=== PATIENT | female | born 1960 | race Caucasian/White ===

== ENCOUNTER → 2022-04-10 | Outpatient (REF) | payer SELFPAY ==
[2022-04-10 16:54] LABS: APPEARANCE, URINE MANUAL CLEAR (CLEAR); BILIRUBIN, URINE MANUAL NEGATIVE (NEGATIVE); BLOOD URINE MANUAL NEGATIVE (NEGATIVE); COLOR, URINE MANUAL YELLOW (YELLOW); GLUCOSE, URINE (UA) MANUAL NEGATIVE (NEGATIVE); KETONE, URINE MANUAL NEGATIVE (NEGATIVE); LEUKOCYTE ESTERASE, URINE MAN POSITIVE (NEGATIVE); NITRITE, URINE MANUAL NEGATIVE (NEGATIVE); PROTEIN, URINE MANUAL NEGATIVE (NEGATIVE); SPECIFIC GRAVITY,URINE MANUAL 1.025 (1.002-1.035); UROBILINOGEN, URINE MANUAL NORMAL (NORMAL)
[2022-04-10 17:21] LABS: WBC, URINE 30-40 /hpf (0-3)
[2022-04-10 17:22] LABS: BACTERIA, URINE SMALL AMOUNT; HYALINE CAST, URINE NONE SEEN /lpf (0-1); MUCUS, URINE SMALL AMOUNT (NEGATIVE); SQUAMOUS EPITHELIAL CELL URINE SMALL AMOUNT /hpf (SMALL AMT); TRANSITIONAL EPI CELLS, URINE MOD AMOUNT /hpf
== END ==
LOC: M LAB REF 16:23
PROVIDERS: ATTEND Physician Assistant Medical
DX: N39.0 Urinary tract infection, site not specified (principal)

== ENCOUNTER → 2023-07-11 | Outpatient (REF) | payer MEDICARE, SELFPAY ==
[2023-07-11 15:44] LABS: IRON (FE) 72 UG/DL (50-170); PERCENT SATURATION 22.2 % (13.2-45.0); RHEUMATOID FACTOR QUANT < 3.5 IU/ML (<14); TOTAL IRON BINDING CAPACITY 325 UG/DL (250-425)
[2023-07-11 15:47] LABS: FERRITIN 79.5 NG/ML (7.3-270.7); VITAMIN B12 LEVEL 965 PG/ML (211-911)
[2023-07-13 21:09] LABS: ANTINUCLEAR ANTIBODIES DIRECT Negative (Negative); CYCLIC CITRULLINATED PEPTIDE 5 units (0-19)
== END ==
LOC: M LAB REF 12:37
PROVIDERS: ATTEND Internal Medicine
DX: Z98.84 Bariatric surgery status (principal); M25.551 Pain in right hip

== ENCOUNTER → 2023-07-29 | Outpatient (CLI) | payer MEDICARE | LOC: M WHC 09:39 | PROVIDERS: ATTEND Internal Medicine | DX: Z12.31 Encounter for screening mammogram for malignant neoplasm of breast (principal) ==

== ENCOUNTER 2023-11-18 06:54 | Day surgery (SDC) | payer MEDICARE ==
[~2023-11-18] VITALS: Ht 170.2 cm; Wt 100.3 kg
[~2023-11-18 06:54] MED LIST: ASCO500C3 PO; B-12100010 PO; FERR324T21 PO; MULT-90 PO; PARO40TA2 PO; SIMETHICONE 40MG/0.6ML DROPS 30ML As Ordered ONE; VITA100093 PO
[2023-11-18] MEDS: NS 1,000 ML IV ONE (07:15)
[2023-11-18] MEDS ORDERED: propofoL 500 MG/50 ML VIAL As Ordered ONE (07:32)
[2023-11-18 08:15] VITALS: BP 138/73; O2SAT 97
== END 2023-11-18 08:31 | disposition home or self-care (01) ==
LOC: M OPP 06:54
PROVIDERS: ATTEND Internal Medicine Gastroenterology
DX: K63.5 Polyp of colon (principal); K63.89 Other specified diseases of intestine; K57.30 Diverticulosis of large intestine without perforation or abscess without bleeding; L40.0 Psoriasis vulgaris; Z98.84 Bariatric surgery status; Z79.810 Long term (current) use of selective estrogen receptor modulators (SERMs)

== ENCOUNTER → 2024-01-09 | Outpatient (CLI) | payer MEDICARE ==
[~2024-01-09] MED LIST changes: -SIMETHICONE 40MG/0.6ML DROPS 30ML As Ordered ONE
[2024-01-09 09:51] LABS: BASO # 0.1 10^3/uL (0.0-0.2); BASO % 0.7 % (0.0-1.0); EOS # 0.3 10^3/uL (0.0-0.5); EOS % 4.6 % (0.0-3.0); HEMOGLOBIN 11.9 g/dl (12.0-15.5); LYMPH # 1.6 10^3/uL (1.5-5.0); LYMPH % 22.6 % (24.0-44.0); MEAN CORPUSCULAR HEMOGLOBIN 29.9 pg (27.0-33.0); MEAN CORPUSCULAR HGB CONC 33.1 g/dl (32.0-36.5); MEAN CORPUSCULAR VOLUME 90.5 fl (80.0-96.0); MONO # 0.6 10^3/uL (0.0-0.8); MONO % 7.8 % (2.0-8.0); NEUTROPHILS # 4.6 10^3/uL (1.5-8.5); NEUTROPHILS % 63.9 % (36.0-66.0); PLATELET COUNT, AUTOMATED 279 10^3/uL (150-450); RED BLOOD COUNT 3.98 10^6/uL (4.00-5.40); WHITE BLOOD COUNT 7.2 10^3/uL (4.0-10.0)
[2024-01-09 10:13] LABS: ALBUMIN 3.4 G/DL (3.2-5.2); ALKALINE PHOSPHATASE 77 U/L (46-116); ALT/SGPT 15 U/L (7.0-40); AST/SGOT 10 U/L (<34); BILIRUBIN,TOTAL 0.7 MG/DL (0.3-1.2); BLOOD UREA NITROGEN 14 MG/DL (9-23); CALCIUM LEVEL 9.1 MG/DL (8.3-10.6); CARBON DIOXIDE LEVEL 32 MMOL/L (20-31); CHLORIDE LEVEL 106 MMOL/L (98-107); CREATININE FOR GFR 0.61 MG/DL (0.55-1.30); GLOMERULAR FILTRATION RATE > 60.0 (>45); GLUCOSE, FASTING 88 MG/DL (74-106); POTASSIUM SERUM 4.9 MMOL/L (3.5-5.1); SODIUM LEVEL 141 MMOL/L (136-145); TOTAL PROTEIN 5.9 G/DL (5.7-8.2)
== END ==
LOC: M LAB 09:25
PROVIDERS: ATTEND Internal Medicine Rheumatology
DX: R79.89 Other specified abnormal findings of blood chemistry (principal)

== ENCOUNTER → 2024-02-05 | Outpatient (CLI) | payer MEDICARE ==
[~2024-02-05] MED LIST changes: +CELE0.09 PO
[2024-02-05 09:13] LABS: BASO # 0.1 10^3/uL (0.0-0.2); BASO % 1.1 % (0.0-1.0); EOS # 0.3 10^3/uL (0.0-0.5); EOS % 5.4 % (0.0-3.0); HEMATOCRIT 39.2 % (36.0-47.0); HEMOGLOBIN 12.6 g/dl (12.0-15.5); LYMPH # 1.2 10^3/uL (1.5-5.0); LYMPH % 24.8 % (24.0-44.0); MEAN CORPUSCULAR HEMOGLOBIN 29.6 pg (27.0-33.0); MEAN CORPUSCULAR HGB CONC 32.1 g/dl (32.0-36.5); MEAN CORPUSCULAR VOLUME 92.2 fl (80.0-96.0); MONO # 0.4 10^3/uL (0.0-0.8); MONO % 8.2 % (2.0-8.0); NEUTROPHILS # 2.8 10^3/uL (1.5-8.5); NEUTROPHILS % 60.1 % (36.0-66.0); PLATELET COUNT, AUTOMATED 252 10^3/uL (150-450); RED BLOOD COUNT 4.25 10^6/uL (4.00-5.40); WHITE BLOOD COUNT 4.6 10^3/uL (4.0-10.0)
[2024-02-05 09:44] LABS: BLOOD UREA NITROGEN 15 MG/DL (9-23); CARBON DIOXIDE LEVEL 31 MMOL/L (20-31); CHLORIDE LEVEL 105 MMOL/L (98-107); CREATININE FOR GFR 0.62 MG/DL (0.55-1.30); GLOMERULAR FILTRATION RATE > 60.0 (>45); GLUCOSE, FASTING 90 MG/DL (74-106); POTASSIUM SERUM 4.2 MMOL/L (3.5-5.1); SODIUM LEVEL 140 MMOL/L (136-145)
== END ==
LOC: M EKG 08:33
PROVIDERS: ATTEND Podiatrist
DX: Z01.818 Encounter for other preprocedural examination (principal)

== ENCOUNTER 2024-02-07 08:50 | Day surgery (SDC) | payer MEDICARE ==
[~2024-02-07] VITALS: Ht 170.2 cm; Wt 102.1 kg
[2024-02-07] MEDS ORDERED: ACETAMINOPHEN 1000MG 100ML IV BAG As Ordered ONE (09:11)
[2024-02-07] MEDS ORDERED: fentaNYL 100 MCG/2 ML INJECTION As Ordered ONE (09:11)
[2024-02-07] MEDS ORDERED: MIDAZOLAM INJ 2MG/2ML VIAL As Ordered ONE (09:11)
[2024-02-07] MEDS ORDERED: propofoL 200 MG/20 ML VIAL As Ordered ONE (09:11)
[2024-02-07] MEDS ORDERED: ceFAZolin 2 GM/D5W 50 ML IV BAG As Ordered ONE (09:43)
[2024-02-07] MEDS ORDERED: LIDOCAINE 2% MDV 20ML VIAL As Ordered ONE (11:13)
[2024-02-07] MEDS ORDERED: LIDOCAINE 2% 100MG/5ML SDV (FOR ANES.) As Ordered ONE (11:13)
[2024-02-07] MEDS ORDERED: GENTAMICIN SULF 80MG/2ML VIAL As Ordered ONE (11:13)
[2024-02-07 13:28] VITALS: BP 163/75; TEMP 97.5; O2SAT 98
== END 2024-02-07 15:38 | disposition home or self-care (01) ==
LOC: M SDC 08:50
PROVIDERS: ATTEND Podiatrist
DX: M20.5X2 Other deformities of toe(s) (acquired), left foot (principal); L40.50 Arthropathic psoriasis, unspecified; G47.30 Sleep apnea, unspecified; Z79.899 Other long term (current) drug therapy; Z98.84 Bariatric surgery status; F41.0 Panic disorder [episodic paroxysmal anxiety]
CPT/HCPCS: 28285; 73630; 76000; 88300; 97116; 97530; J0131; J0665; J0690; J1580; J2250; J3010

== ENCOUNTER → 2024-03-20 | Outpatient (REF) | payer MEDICARE ==
[2024-03-20 17:41] LABS: PERCENT SATURATION 17.8 % (13.2-45.0)
== END ==
LOC: M LAB REF 16:03
PROVIDERS: ATTEND Internal Medicine
DX: D50.9 Iron deficiency anemia, unspecified (principal)

== ENCOUNTER → 2024-07-05 | Outpatient (REF) | payer MEDICARE ==
[2024-07-05 18:17] LABS: APPEARANCE, URINE CLOUDY (CLEAR); BACTERIA, URINE AUTO NEGATIVE (NEGATIVE); BILIRUBIN, URINE AUTO NEGATIVE (NEGATIVE); BLOOD, URINE BLOOD 3+ (NEGATIVE); COLOR, URINE AMBER (YELLOW); GLUCOSE, URINE (UA) AUTO NEGATIVE (NEGATIVE); KETONE, URINE AUTO TRACE mg/dL (NEGATIVE); LEUKOCYTE ESTERASE, URINE AUTO NEGATIVE (NEGATIVE); MUCUS, URINE SMALL (NEGATIVE); NITRITE, URINE AUTO NEGATIVE (NEGATIVE); PROTEIN, URINE AUTO 2+ mg/dL (NEGATIVE); RBC, URINE AUTO TNTC /HPF (0-3); SPECIFIC GRAVITY URINE AUTO 1.025 (1.002-1.035); SQUAMOUS EPITHELIAL CELL UR AU 1 /HPF (0-6); UROBILINOGEN, URINE AUTO 0.2 mg/dL (0.0-2.0); WBC, URINE AUTO 2 /HPF (0-3)
== END ==
LOC: M LAB REF 17:46
PROVIDERS: ATTEND Physician Assistant Medical
DX: N39.0 Urinary tract infection, site not specified (principal)

== ENCOUNTER → 2024-08-12 | Outpatient (CLI) | payer MEDICARE | LOC: M WHC 10:38 | PROVIDERS: ATTEND Internal Medicine | DX: Z12.31 Encounter for screening mammogram for malignant neoplasm of breast (principal); Z80.3 Family history of malignant neoplasm of breast ==

== ENCOUNTER → 2024-09-05 | Outpatient (REF) | payer MEDICARE ==
[2024-09-05 15:34] LABS: APPEARANCE, URINE HAZY (CLEAR); BACTERIA, URINE AUTO NEGATIVE (NEGATIVE); BILIRUBIN, URINE AUTO NEGATIVE (NEGATIVE); BLOOD, URINE BLOOD 3+ (NEGATIVE); COLOR, URINE YELLOW (YELLOW); GLUCOSE, URINE (UA) AUTO NEGATIVE (NEGATIVE); KETONE, URINE AUTO NEGATIVE (NEGATIVE); LEUKOCYTE ESTERASE, URINE AUTO NEGATIVE (NEGATIVE); MUCUS, URINE SMALL (NEGATIVE); NITRITE, URINE AUTO NEGATIVE (NEGATIVE); PROTEIN, URINE AUTO NEGATIVE (NEGATIVE); RBC, URINE AUTO TNTC /HPF (0-3); SQUAMOUS EPITHELIAL CELL UR AU 0 /HPF (0-6); WBC, URINE AUTO 1 /HPF (0-3)
== END ==
LOC: M LAB REF 15:17
PROVIDERS: ATTEND Physician Assistant Medical
DX: N39.0 Urinary tract infection, site not specified (principal)

== ENCOUNTER → 2025-03-15 | Outpatient (REF) | payer MEDICARE ==
[2025-03-15 12:57] LABS: IRON (FE) 71.0 UG/DL (50-170); PERCENT SATURATION 22.7 % (13.2-45.0)
== END ==
LOC: M LAB REF 12:00
PROVIDERS: ATTEND Internal Medicine
DX: D50.9 Iron deficiency anemia, unspecified (principal)